=== PATIENT | female | born 1975 | race Hispanic/Latino ===

== ENCOUNTER 2023-09-23 21:03 | Emergency (ER) | payer SELFPAY ==
[2023-09-23 21:07] VITALS: BP 160/99
[2023-09-23 21:37] LABS: Urine Albumin Negative (Neg - Trace); Urine Bilirubin Negative (Negative); Urine Character Clear (Clear); Urine Color Straw; Urine Glucose Negative (Negative); Urine Ketone Negative (Negative); Urine Leukocyte Negative (Negative); Urine Nitrite Negative (Negative); Urine Occult Blood Negative (Negative); Urine Specific Gravity 1.005 (<1.030); Urine Urobilinogen Negative (Neg - 1+)
[2023-09-23 22:19] LABS: % Basophils 0.6 % (0-2); % Eosinophils 3.9 % (0-6); % Immature Granulocytes 0.3 % (0-0.5); % Monocytes 8.3 % (1.7-9.3); % Neutrophils 46.9 % (42.2-75.2); Absolute Basophils 0.1 10^3/uL (0-0.2); Absolute Eosinophils 0.5 10^3/uL (0-0.7); Absolute Lymphocytes 4.8 10^3/uL (1.2-3.4); Absolute Neutrophils 5.7 10^3/uL (1.4-6.5); Hematocrit 39.6 % (37.0-47.0); Hemoglobin 14.3 g/dL (12.0-16.0); Mean Corp Hgb Conc. 36.1 g/dL (33.0-37.0); Mean Corpuscular Hgb 32.8 pg (27.0-31.0); Mean Corpuscular Volume 90.8 fL (81.0-99.0); Nucleated Red Blood Cells % 0 %; Platelet Count 242 10^3/uL (130-400); Red Blood Cell Count 4.36 10^6/uL (4.20-5.40); White Blood Cell Count 12.1 10^3/uL (4.8-10.8)
[2023-09-23 22:32] LABS: ALT (SGPT) 36 U/L (0-35); AST (SGOT) 35 U/L (14-36); Albumin 4.3 g/dl (3.5-5.0); Alkaline Phosphatase 125 U/L (38-126); Blood Urea Nitrogen 10 mg/dl (7-17); Calcium 9.3 mg/dl (8.4-10.2); Carbon Dioxide 26 mmol/L (22-30); Chloride 104 mmol/L (98-107); Glucose 136 mg/dl (70-99); Lipase 88 U/L (23-300); Potassium 3.9 mmol/L (3.5-5.1); Sodium 135 mmol/L (135-145); Total Bilirubin 0.3 mg/dl (0.2-1.3); Total Protein 7.4 g/dl (6.3-8.2); eGFR > 60.00
--- NOTE | 2023-09-23 22:51 | ED.GENMED ---
History of Present Illness
General
Chief Complaint: Abdominal Pain
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
Exam Limitations: other (Language barrier)
Time Seen by Provider: 09/23/23 21:53
History of Present Illness
History of Present Illness:
This is a 47 year old Congolese speaking female that comes in with c/o right lower abd pain. States that she started with right lower abd pain a week ago. States that she is not sure of it is her Ovary or not. States that she has appetite and
her pain has gotten worse. States that she is not sure if she had any fever and that she has had a cough. States that she did feel SOB. States that she has been nauseated with the abd pain and had a headache. Denies any chills, chest pain, vomiting,
diarrhea, dizziness, urinary burning
Past History
Past History
ED Past Medical History: Arrthythmia (Tachycardia), Asthma, HTN and NIDDM
ED Past Surgical History: Cholecystectomy and Gynecological (Hysterectomy)
Social History
Tobacco: Non-smoker
Alcohol: None
Personal: Other (Seperated)
Living: with family
Review of Systems
Review of Systems
All Other Systems: ROS reviewed and negative except as documented in HPI and ROS
Constitutional: Reports no symptoms; Denies fever or chills
EENT: Reports no symptoms
Respiratory: Reports cough and trouble breathing
Cardiac: Denies chest pain
ABD/GI: Reports abdominal pain and nausea; Denies vomiting or diarrhea
: Reports no symptoms; Denies dysuria, frequency or urgency
Musculoskeletal: Reports no symptoms
Skin: Reports no symptoms
Neurological: Reports headache; Denies dizzy
Psychiatric: Reports no symptoms
Phy Exam
General Physical Exam
General Presentation: mild distress
General age: appears stated age
General Skin: warm and dry
General Habitus: normal
General Mental: alert
General Hydration: appears well hydrated
ENT Exam
ENT Exam: TM's normal, pharynx normal and neck supple
Eye Exam
Eye Exam: EOMI
Cardiovascular Exam
Cardiovascular Exam: regular rate/rhythm, no edema, no murmur and normal peripheral pulses
Pulmonary Exam
Pulmonary Exam: lungs clear, no respiratory distress, no rales, chest non tender, no crackles, no rhonchi, no wheezing and no cough
Gastrointestinal Exam
Gastrointestinal Exam: normal bowel sounds, soft, no organomegaly, no pulsatile mass, non distended and tender (Right sided abd tenderness with palpation)
Musculoskeletal Exam
Musculoskeletal Exam: full ROM and no edema
Skin Exam
Skin Exam: normal color, warm/dry, no rash and no petechia
Psychiatric Exam
Psychiatric Exam: normal mood/affect
Course
Orders/Labs/Results
Orders:
Orders
09/23/23 21:29
Urinalysis Reflex To Culture Urgent
Date Specimen was Collected: 09/23/23
Time Specimen was Collected: 21:17
09/23/23 22:09
Complete Blood Count/With Diff Urgent
Comprehensive Metabolic Panel Urgent
HCG, Serum Qualitative Screen Urgent
Comment: ADD ON
Lipase Urgent
09/23/23 22:51
CT Abd/pelvis W Iv Cont Urgent
Comment:
Reason For Exam: rIGHT LOWER ABD PAIN
0.9% Sodium Chloride 1000 ml [Nss] 1,000 ml IV BOLUS
Ketorolac [Toradol] 30 mg IV NOW STA
09/23/23 22:54
Add On- LAB Urgent
Tests Added?: HCG
09/23/23 22:55
CR Chest - 2 Views Urgent
Comment:
Reason For Exam: SOB
09/24/23 01:05
US Pelvis Only (non-obstetric) Urgent
Comment:
Reason For Exam: r/o torsion right ovary
09/24/23 01:17
Acetaminophen [Tylenol] 1,000 mg PO NOW STA
Abnormal Lab Results
09/23/23
22:09
WBC 12.1 H 10^3/uL
(4.8-10.8)
MCH 32.8 H pg
(27.0-31.0)
Absolute Lymphs (auto) 4.8 H 10^3/uL
(1.2-3.4)
Absolute Monos (auto) 1.0 H 10^3/uL
(0.1-0.6)
Glucose 136 H mg/dl
(70-99)
ALT 36 H U/L
(0-35)
09/23/23 22:09
09/23/23 22:09
Leukocytosis, Hyperglycemia, ALT very slightly elevated. Lipase normal at 88, Urine negative for infection.
Vital Signs
Initial and Last Documented VS:
Initial Vital Signs
Temp Pulse Resp BP Pulse Ox
98.0 F 82 16 160/99 97
09/23/23 21:07 09/23/23 21:07 09/23/23 21:07 09/23/23 21:07 09/23/23 21:07
Last Documented Vital Signs
Temp Pulse Resp BP Pulse Ox
97.6 F 62 18 140/88 100
09/24/23 01:32 09/24/23 01:32 09/24/23 01:32 09/24/23 01:32 09/24/23 01:32
MDM/Problems Addressed
Differential Diagnosis Includes:
Appendicitis,
MDM/Problems Addressed:
This is a 47 year old female that comes in with c/o right lower abd pain. States that this started a week ago but is getting worse.
Will get labs, Urine, CT scan, medicated for pain and given IV fluids.
Back into see patient. Via the language line explained that her CT scan and US are normal. This may be due to her lifting at her job as the nerves wrap around to the abdomen. Patient can use Tylenol and Ibuprofen for pain. Follow up in the clinic.
Return with any concerns.
Chronic conditions affecting care: Previous abdomnial surgery
Acute Exacerbation and/or Progression of Chronic Illness: Previous abdomnial surgery
*Radiology
Radiology exam reviewed: preliminary read by ED provider (Chest-Negative for active disease. ), radiology read reviewed (CT night hawk- NOrmal heart sixe. No pleural effusion. Minimal scarring or atelectasis both lungs bases. No free air or fluid.
Mild fatty liver. Cholecystectomy with no biliary duct dilation. Other solid organs unremarkable. Mildly filled urinary bladder unremarkable. Hysterectomy with right ovary ), all reviewed NAD by ED Provider (CT cont- Right ovary visualized. Left
ovary not seen. Minimal fecal loading witih normal appendix. Stomach and small bowel unremarkable. Vessels unremarkable. No enlarged lymph nodes. No acut or suspicious osseous lesions. ) and other (US night hawk- Mildly distended urinar bladder
unremarkable. Hysterectomy Left ovary not visualized. Right ovary morphologically normal with intact arterial and venous flow. No free fluid )
*Pulse Oximetry
Patient hypoxic: no
*EKG
Interpreted by ED Provider?: NA
Rate: EKG- N/A
*Engineering Instructor Interpretation
Rate: Engineering Instructor- N/A
*Critical Care Note
Total Time (30-74mins, 75-104mins- exclusive of procedures): Not Applicable
ED Attending Note
-
Portions of this chart may have been created with voice recognition software.� Occasional wrong word or��sound alike� substitutions may have occurred due to the inherent limitations of voice recognition software.
Discharge Plan
Departure
Patient Disposition: Home (Routine Discharge)
Date of Disposition: 09/24/23
Time of Disposition: 03:18
Patient with high blood pressure during this ER visit?: Yes
Condition: Good
Covid-19: Not Applicable
Discharge Problem:
Abdominal pain, right lower quadrant
Instructions: Abdominal Pain, BLOOD PRESSURE
Referrals:
[facility] - Call in 1-3 days for appt
NONE,* [Family Provider] -
Stand Alone Forms: Return to Work
Activity Restrictions/Additional Instructions:
As discussed, your blood work shows that your WBC are slightly elevated. Your Urine is negative for infection and your US and CT scan are normal. This may be do to you lifting at work as this affects the back and the nerves warp around to the
abdomen and can cause pain. You may use Tylenol 1000mg every 6 hours for pain and alternate with Ibuprofen 600mg every 6 hours with food for pain. So if you take Tylenol at 9am you can use the Ibuprofen at 12 noon, Tylenol would be due again at 3pm
and Ibuprofen at 6pm. Only if you need this for pain control. [facility]. IF YOU HAVE ANY OTHER CONCERNS PLEASE RETURN TO THE EMERGENCY ROOM.
Interventions
Interventions:
*Risk Screen - Suicide Last Done: 09/24/23 01:27
*General Assessment Last Done: 09/23/23 21:07
*Neglect/Abuse Screening Last Done: 09/24/23 01:27
ED- Fall Risk Assessment Last Done: 09/24/23 01:27
*ED COVID-19 Vaccine History Last Done: 09/23/23 21:07
AU-Zqesyf-Mwveokndzj Assessment Last Done: 09/23/23 22:45
Discharge Date and Time
Print Language: DIVEHI
[2023-09-23] MEDS: NSS 1000 IV (23:15)
[2023-09-23] MEDS: TORADOL 30 MG IV (23:16)
[2023-09-23 23:43] LABS: HCG, Serum Qualitative Screen Negative
[2023-09-24] MEDS: TYLENOL 1000 MG PO (01:20)
[2023-09-24 01:32] VITALS: BP 140/88
[2023-09-24 03:30] VITALS: BP 148/76
== END 2023-09-24 03:30 | disposition home or self-care (01) ==
LOC: EMR 21:03
PROVIDERS: Emergency Medicine; EMERGENCY PHYSICIAN Emergency Medicine
DX: R10.31 Right lower quadrant pain (principal); D72.829 Elevated white blood cell count, unspecified; R00.0 Tachycardia, unspecified; J45.909 Unspecified asthma, uncomplicated; I10 Essential (primary) hypertension; E11.65 Type 2 diabetes mellitus with hyperglycemia; Z90.49 Acquired absence of other specified parts of digestive tract; Z90.710 Acquired absence of both cervix and uterus
CPT/HCPCS: 99284; 96374; 96361; 71046; 74177; 76856; 80053; 81003; 83690; 84703; 85025; Q9967